=== PATIENT | male | born 1960 | race Caucasian/White ===

== ENCOUNTER 2016-08-04 07:45 | Emergency (ER) | payer MEDICARE, OTHER ==
[~2016-08-04] VITALS: Ht 167.6 cm; Wt 72.0 kg
[2016-08-04 07:48] VITALS: BP 153/89; PULSE 81; RESP 15; TEMP 98.1; O2SAT 97
[2016-08-04] MEDS ORDERED: SERT-129 PO (08:37)
[2016-08-04] MEDS ORDERED: BUPR150CR PO (08:37)
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
[2016-08-04 09:10] LABS: AUTOMATED NEUTROPHIL # 2.9 TH/MM3 (1.8-7.7); BASOPHIL # 0.1 TH/MM3 (0-0.2); BASOPHIL % 1.3 % (0.0-2.0); EOSINOPHIL # 0.1 TH/MM3 (0-0.4); EOSINOPHIL % 1.1 % (0.0-4.0); HEMATOCRIT 44.8 % (39.0-51.0); HEMO FLAGS DIFF FINAL; LYMPH % 24.8 % (9.0-44.0); LYMPHOCYTE # 1.2 TH/MM3 (1.0-4.8); MEAN CELL VOLUME 93.1 FL (80.0-100.0); MEAN CORPUSCULAR HEMOGLOBIN 31.7 PG (27.0-34.0); MEAN CORPUSCULAR HGB CONC 34.1 % (32.0-36.0); MONO % 12.5 % (0.0-8.0); NEUT % 60.3 % (16.0-70.0); PLATELET COUNT 255 TH/MM3 (150-450); RED BLOOD COUNT 4.81 MIL/MM3 (4.50-5.90); RED CELL DISTRIBUTION WIDTH 12.9 % (11.6-17.2); WHITE BLOOD COUNT 4.9 TH/MM3 (4.0-11.0)
[2016-08-04 09:22] LABS: AMPHETAMINE, URINE NEG (NEG); BARBITURATES, URINE NEG (NEG); COCAINE, URINE NEG (NEG)
[2016-08-04 09:47] LABS: ANION GAP 9 MEQ/L (5-15); AST (GOT) 16 U/L (15-37); BICARBONATE 25.5 MEQ/L (21.0-32.0); BLOOD UREA NITROGEN 18 MG/DL (7-18); CHLORIDE 103 MEQ/L (98-107); GLOMERULAR FILTRATION RATE 74 ML/MIN (>89); POTASSIUM 4.2 MEQ/L (3.5-5.1); SODIUM (NA) 137 MEQ/L (136-145)
[2016-08-04 09:50] LABS: ALKALINE PHOSPHATASE 95 U/L (45-117); ALT (GPT) 25 U/L (12-78); TOTAL BILIRUBIN ADULT 0.5 MG/DL (0.2-1.0)
[2016-08-04 13:00] VITALS: BP 123/77; PULSE 68; RESP 17; O2SAT 97
[2016-08-04 14:15] VITALS: BP 132/78; PULSE 65; RESP 18; TEMP 98.2; O2SAT 98
[2016-08-04 18:38] VITALS: BP 138/91; PULSE 61
[2016-08-04 22:22] VITALS: BP 149/75; PULSE 89; RESP 18
[2016-08-05 02:19] VITALS: BP 106/70; PULSE 72; RESP 18; O2SAT 98
[2016-08-05 05:25] VITALS: BP 118/57; PULSE 71; RESP 18
[2016-08-05 10:00] VITALS: BP 109/63; PULSE 73; RESP 16; TEMP 97.7; O2SAT 96
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
[2016-08-05] MEDS ORDERED: ZOLO50TA PO (11:02)
[2016-08-06] MEDS ORDERED: SERTRALINE HCL 100 MG TAB PO SCH (09:00)
== END 2016-08-05 11:35 | disposition home or self-care (01) ==
LOC: NEPC 07:45 → NEPJ 08-05 11:35
DX: F33.0 Major depressive disorder, recurrent, mild (principal); R45.851 Suicidal ideations; Z72.0 Tobacco use; Z86.59 Personal history of other mental and behavioral disorders
CPT/HCPCS: 80053; 80307; 85025; 99284